=== PATIENT | female | born 1985 | race Caucasian/White ===

== ENCOUNTER 2020-10-22 14:45 | Emergency (ER) | payer BC ==
[~2020-10-22] VITALS: Ht 170.2 cm; Wt 63.5 kg
[2020-10-22] MEDS ORDERED: SINGULAIR 10 MG10 M1 PO (14:55)
[2020-10-22] MEDS ORDERED: ADVAIR 100-501 EACH INH (14:55)
[2020-10-22] MEDS ORDERED: AUGMENTIN 875-1 EACH PO (15:38)
[2020-10-22] MEDS ORDERED: DIFLUCAN150 M1 PO (15:43)
[2020-10-22 15:49] VITALS: BP 118/68
== END 2020-10-22 15:50 | disposition home or self-care (01) ==
LOC: M.ERS 14:45
DX: S61.432A Puncture wound without foreign body of left hand, initial encounter (principal); J45.909 Unspecified asthma, uncomplicated; W54.0XXA Bitten by dog, initial encounter; Y93.89 Activity, other specified; Y92.89 Other specified places as the place of occurrence of the external cause; Y99.8 Other external cause status